=== PATIENT | female | born 1940 | race Caucasian/White ===

== ENCOUNTER → 2016-08-15 | Day surgery (SDC) | payer MEDICARE, OTHER ==
[~2016-08-15] VITALS: Ht 162.6 cm; Wt 67.1 kg
[~2016-08-15] MED LIST: CALCIUM500 MG PO; COREG 12.5MG12.5 MG PO; COUMADIN 2.5MG2.5 MG PO; COUMADIN 5MG TAB5 MG PO; FERROUS SULFAT325 M2 PO; HYDROCHLOROTHIA25 MG PO; LEVOTHYROXINE75 MCG PO; LIPITOR TAB 2020 MG PO; LISINOPRIL20 MG PO; METFORMIN HCL500 MG PO; NORVASC 5 MG TAB5 MG PO; PLAVIX 75 MG TA75 MG PO
== END | disposition home or self-care (01) ==
LOC: OR 06:51
PROVIDERS: Internal Medicine Gastroenterology
PROC: 0DJ08ZZ Inspection of Upper Intestinal Tract, Via Natural or Artificial Opening Endoscopic (ICD-10-PCS; principal; 2016-08-15 09:30)
DX: T18.2XXA Foreign body in stomach, initial encounter (principal); K44.9 Diaphragmatic hernia without obstruction or gangrene; D50.9 Iron deficiency anemia, unspecified; E11.9 Type 2 diabetes mellitus without complications; I10 Essential (primary) hypertension; I48.91 Unspecified atrial fibrillation; R74.8 Abnormal levels of other serum enzymes; Z87.891 Personal history of nicotine dependence; Z79.01 Long term (current) use of anticoagulants; Z79.02 Long term (current) use of antithrombotics/antiplatelets; Z79.899 Other long term (current) drug therapy; Z90.49 Acquired absence of other specified parts of digestive tract
CPT/HCPCS: 82962; J2250; J3010; J7030

== ENCOUNTER 2020-07-04 23:47 | Emergency (ER) | payer MEDICARE, OTHER | END 2020-07-05 03:20 | disposition home or self-care (01) | LOC: ER1 23:47 | DX: S00.83XA Contusion of other part of head, initial encounter (principal); I10 Essential (primary) hypertension; I48.91 Unspecified atrial fibrillation; E11.9 Type 2 diabetes mellitus without complications; W06.XXXA Fall from bed, initial encounter | CPT/HCPCS: 70450; 72125; 93005; 99284 ==

== ENCOUNTER → 2022-02-17 | Outpatient (CLI) | payer MEDICARE, OTHER | LOC: EXRD 01-16 13:45 | DX: N18.31 Chronic kidney disease, stage 3a (principal); N26.1 Atrophy of kidney (terminal); Q61.02 Congenital multiple renal cysts | CPT/HCPCS: 76775 ==